=== PATIENT | female | born 1945 | race Two or more races ===

== ENCOUNTER 2020-10-20 06:00 | Day surgery (SDC) | payer OTHER | END 2020-10-20 09:45 | disposition home or self-care (01) | LOC: AMB-ENDOS 06:00 | PROVIDERS: ATTEND Surgery | DX: D12.8 Benign neoplasm of rectum (principal); Z20.822 Contact with and (suspected) exposure to COVID-19 ==

== ENCOUNTER 2021-03-15 06:41 | Inpatient (IN) | payer OTHER ==
[~2021-03-15 06:41] MED LIST: GLUMETZA500 MG; LIPITOR40 MG; RENA-VITE RX T1 EACH; VERAPAMIL PO; ZESTRIL40 M1
[2021-03-16] MEDS ORDERED: VERAPAMIL HCL80 MG (14:23)
[2021-03-19] MEDS ORDERED: PERCOCET 5-3251 EACH PO (13:35)
[2021-03-19] MEDS ORDERED: PROTONIX40 MG PO (13:36)
== END 2021-03-19 15:04 | disposition home or self-care (01) | DRG 355 ==
LOC: CIR.AMB 06:41 → SURG 06:50 → CIR.AMB 07:15 → SURG 03-16 00:43 → CIR.AMB 03-16 00:43 → SURG 03-16 01:54
PROVIDERS: ADMIT Surgery; ATTEND Surgery
PROC: 0WUF4JZ Supplement Abdominal Wall with Synthetic Substitute, Percutaneous Endoscopic Approach (ICD-10-PCS; principal; 2021-03-15 12:30)
PROC: 05HY33Z Insertion of Infusion Device into Upper Vein, Percutaneous Approach (ICD-10-PCS; 2021-03-17)
PROC: 30233N1 Transfusion of Nonautologous Red Blood Cells into Peripheral Vein, Percutaneous Approach (ICD-10-PCS; 2021-03-18)
DX: K43.0 Incisional hernia with obstruction, without gangrene (principal); D64.9 Anemia, unspecified